=== PATIENT | female | born 1985 | race Two or more races ===

== ENCOUNTER 2017-09-12 15:21 | Emergency (ER) | payer SELFPAY ==
[~2017-09-12] VITALS: Ht 162.6 cm; Wt 72.6 kg
[~2017-09-12 15:21] MED LIST: HYDROCODON-ACE1 EA15 ORAL; IBUPROFEN600 MG ORAL; NKM; TAMIFLU75 MG ORAL; TEGRETOL200 MG PO
--- NOTE | 2017-09-12 16:08 | Emergency Room Report ---
History of Present Illness General Chief Complaint: Pain Source: Patient (Wilson Soares) Present Illness HPI 31 yo female patient presents to ER complaining of right foot pain x2 days. Patient reports pain began yesterday morning and is sharp in character. Patient states she is unable to bear weight on her foot secondary to pain; states she must walk on the "outside part" of her foot to walk. Patient denies history of trauma to her foot. Patient reports history of similar episodes of foot pain in the past. Patient states she took Motrin at 1100 AM for relief of pain symptoms. Patient denies use of OCP medications. Patient also complains of cough and is requesting "cold medication". Patient complains of subjective fever and dry cough. Patient denies chest pain, SOB, pain in other extremities. (Wilson Soares) Allergies: Coded Allergies: No Known Allergies (Unverified , 11/21/13) Patient History Limited by: language barrier - [place] Past Medical History: see triage record Past Surgical History: none Social History: Denies: smoking, alcohol use, drug use Last Menstrual Period: Current Now: No Reviewed Nursing Documentation: PMH: Agreed, PSxH: Agreed (Wilson Soares) Nursing Documentation-PMH Past Medical History: No Stated History (Wilson Soares) Review of Systems All Other Systems: negative except mentioned in HPI (Wilson Soares) Physical Exam Vital Signs Date Time Temp Pulse Resp B/P (MAP) Pulse Ox O2 Delivery O2 Flow Rate FiO2 09/12/17 15:24 98.6 104 16 115/78 Room Air Sp02 EP Interpretation: reviewed, normal General Appearance: alert, GCS 15, non-toxic, moderate distress Head: normocephalic, atraumatic Eyes: bilateral eye normal inspection, bilateral eye PERRL Respiratory: chest non-tender, lungs clear, normal breath sounds, speaking full sentences Cardiovascular #1: regular rate, rhythm, no edema Cardiovascular #2: 2+ dorsalis pedis (R), 2+ dorsalis pedis (L) Musculoskeletal: digits/nails normal, no calf tenderness, decreased range of motion - secondary to pain, Faustino's Sign negative, other - NVI, tender - TTP proximal arch of right foot. No TTP of left foot. Neurologic: alert, oriented x3, responsive, sensory intact, speech normal, abnormal gait - Secondary to pain, weight bearing only tolerated onn lateral aspect of right foot. Skin: normal color, no rash, warm/dry, well hydrated (Wilson Soares) Medical Decision Making PA Attestation Dr. Wild is my supervising Physician whom patient management has been discussed with. (Wilson Soares) Diagnostic Impression: Primary Impression: Right foot sprain Additional Impressions: Right foot pain Cough ER Course Pt. presents to the ED c/o right foot pain and cough. Ddx considered but are not limited to fracture, sprain, strain, contusion, cellulitis, DVT, upper respiratory tract infection. Vital signs: are WNL, pt. is afebrile H&PE are most consistent with right foot pain and right foot sprain and cough. ORDERS: Right foot x-ray ED INTERVENTIONS: TRI wrap right foot, crutches provided. DISCHARGE: At this time pt. is stable for d/c to home. Will provide printed patient care instructions, and any necessary prescriptions. Rx provided for ibuprofen. Rx provided for Promethazine for cough. Patient instructed to follow with primary care provider to request orthopedic follow-up. Care plan and follow up instructions have been discussed with the patient prior to discharge. (Wilson Soares) ER Course I agree with PA's interpretation of XR (Shilpa Wild M.D.) Other X-Ray Diagnostic Results Other X-Ray Diagnostic Results : X-Ray ordered: Right foot # of Views/Limited Vs Complete: 3 View Indication: Pain PA Xray: Interpretation reviewed, by supervising MD, and agrees with findings. Interpretation: no dislocation, no soft tissue swelling, no fractures Impression: No acute disease Electronically Signed by: Luis Alberto Soares PA-C (Wilson Soares) Last Vital Signs Date Time Temp Pulse Resp B/P (MAP) Pulse Ox O2 Delivery O2 Flow Rate FiO2 09/12/17 15:24 98.6 104 16 115/78 Room Air (Wilson Soares) Disposition: HOME, SELF-CARE Condition: Stable Scripts Promethazine/Dextromethorphan (Promethazine-Dm Syrup) 473 Ml Syrup 1 TSP ORAL Q4H Y for For Cough, #118 ML 0 Refills Prov: Wilson Soares 09/12/17 Ibuprofen* (MOTRIN*) 600 Mg Tablet 600 MG ORAL Q8H Y for For Pain, #30 TAB 0 Refills Prov: Wilson Soares 09/12/17 Patient Instructions: Foot Sprain Additional Instructions: Followup with primary care provider in 3 -5 days. Take medications as directed. Patient questions asked and answered. ER precautions given, patient instructed to return to ER immediately for any new or worsening of symptoms. Wilson Soares Sep 12, 2017 16:08 Shilpa Wild M.D. Sep 14, 2017 01:53
[2017-09-12 16:26] VITALS: BP 122/70
[2017-09-12] MEDS ORDERED: IBUPROFEN600 MG ORAL (16:55)
[2017-09-12] MEDS ORDERED: PHENERGAN6.25 MG/5 ORAL (17:16)
[2017-09-12 17:25] VITALS: BP 125/80
--- NOTE | 2017-09-13 12:50 | Diagnostic Imaging Report ---
Indication: Pain Comparison: None Findings: 3 views of the right foot were obtained. No acute fractures, malalignment, erosions or periostitis are identified. Mild marginal spurs noted in the midfoot. Soft tissues are unremarkable. Impression: No acute findings.
== END 2017-09-12 17:25 | disposition home or self-care (01) ==
LOC: EMR 16:09
DX: S93.601A Unspecified sprain of right foot, initial encounter (principal); X58.XXXA Exposure to other specified factors, initial encounter; Y92.9 Unspecified place or not applicable; R05 Cough
CPT/HCPCS: 99283